=== PATIENT | female | born 1980 | race Caucasian/White ===

== ENCOUNTER 2019-01-09 11:30 | Outpatient (CLI) | payer OTHER | END 2019-01-09 11:40 | disposition home or self-care (01) | LOC: MAMO-SONO 11:30 | DX: N60.11 Diffuse cystic mastopathy of right breast (principal); N60.12 Diffuse cystic mastopathy of left breast; Z12.31 Encounter for screening mammogram for malignant neoplasm of breast ==

== ENCOUNTER → 2020-09-07 | Outpatient (CLI) | payer OTHER | END | disposition home or self-care (01) | LOC: MAMO-SONO 11:57 | DX: Z12.31 Encounter for screening mammogram for malignant neoplasm of breast (principal); N60.11 Diffuse cystic mastopathy of right breast; N60.12 Diffuse cystic mastopathy of left breast ==

== ENCOUNTER → 2021-09-23 | Outpatient (CLI) | payer OTHER | END | disposition home or self-care (01) | LOC: RAD 10:34 | PROVIDERS: ATTEND Radiology Diagnostic Radiology | DX: R13.19 Other dysphagia (principal) ==

== ENCOUNTER 2021-10-26 09:28 | Outpatient (CLI) | payer OTHER | END 2021-10-26 11:06 | disposition home or self-care (01) | LOC: MAMO-SONO 09:28 | PROVIDERS: ATTEND Radiology Diagnostic Radiology | DX: R92.0 Mammographic microcalcification found on diagnostic imaging of breast (principal); N60.11 Diffuse cystic mastopathy of right breast; Z12.31 Encounter for screening mammogram for malignant neoplasm of breast ==

== ENCOUNTER 2021-11-18 00:17 | Emergency (ER) | payer OTHER ==
[~2021-11-18] VITALS: Ht 170.2 cm; Wt 63.5 kg
[2021-11-18] MEDS ORDERED: CARAFATE1 GM/10 ML (00:45)
[2021-11-18] MEDS ORDERED: PROTONIX20 MG (00:45)
[2021-11-18] MEDS ORDERED: KETO10TA2 PO (04:35)
== END 2021-11-18 04:58 ==
LOC: ER 00:17
DX: N20.0 Calculus of kidney (principal)

== ENCOUNTER 2022-04-25 09:14 | Outpatient (CLI) | payer OTHER ==
[~2022-04-25 09:14] MED LIST: CARAFATE1 GM/10 ML; KETO10TA2 PO; PROTONIX20 MG
== END 2022-04-25 10:00 | disposition home or self-care (01) ==
LOC: RAD 09:14
PROVIDERS: ATTEND Radiology Diagnostic Radiology
DX: S90.31XA Contusion of right foot, initial encounter (principal)

== ENCOUNTER → 2023-03-29 | Outpatient (CLI) | payer OTHER | END | disposition home or self-care (01) | LOC: MRI 08:40 | PROVIDERS: ATTEND Radiology Diagnostic Radiology | DX: M25.562 Pain in left knee (principal) | CPT/HCPCS: 73721 ==

== ENCOUNTER 2023-07-12 07:48 | Outpatient (CLI) | payer OTHER | END 2023-07-12 08:10 | disposition home or self-care (01) | LOC: MAMO-SONO 07:48 | PROVIDERS: ATTEND Obstetrics & Gynecology | DX: N83.01 Follicular cyst of right ovary (principal); N83.02 Follicular cyst of left ovary; N60.11 Diffuse cystic mastopathy of right breast; N60.12 Diffuse cystic mastopathy of left breast; Z12.31 Encounter for screening mammogram for malignant neoplasm of breast ==

== ENCOUNTER 2024-12-12 12:05 | Outpatient (CLI) | payer OTHER | END 2024-12-12 12:20 | disposition home or self-care (01) | LOC: MAMO-SONO 12:05 | PROVIDERS: ATTEND Radiology Diagnostic Radiology | DX: N60.11 Diffuse cystic mastopathy of right breast (principal); Z12.31 Encounter for screening mammogram for malignant neoplasm of breast ==